=== PATIENT | male | born 1955 | race Caucasian/White ===

== ENCOUNTER → 2016-08-14 | Outpatient (CLI) | payer BC | LOC: KOH-I 15:47 | DX: M54.2 Cervicalgia (principal); M25.512 Pain in left shoulder; M47.812 Spondylosis without myelopathy or radiculopathy, cervical region | CPT/HCPCS: 72050; 73030 ==

== ENCOUNTER → 2020-12-19 | Outpatient (CLI) | payer MEDICARE ==
[~2020-12-19] VITALS: Ht 162.6 cm; Wt 71.7 kg
== END ==
LOC: OPSV 11-28 07:00
DX: M24.542 Contracture, left hand (principal); S82.62XA Displaced fracture of lateral malleolus of left fibula, initial encounter for closed fracture
CPT/HCPCS: J0775